=== PATIENT | male | born 1955 | race Hispanic/Latino ===

== ENCOUNTER 2024-11-20 09:30 | Day surgery (SDC) | payer OTHER ==
[2024-11-06 11:58] LABS: Absolute Eosinophils 0.1 K/uL (0-0.5); Absolute Monocytes 0.2 K/uL (0.1-1.3); Absolute Neutrophil 2.9 K/uL (1.8-8.0); Basophils % 1.1 % (0-1.3); Eosinophils % 3.3 % (0-4.4); Hematocrit 31.9 % (39.6-49.0); Hemoglobin 11.3 g/dL (13.6-17.9); Lymphocytes % 23.9 % (15.3-44.8); MCH 33.7 pg (27.0-35.0); MCHC 35.5 g/dL (32.0-36.0); MPV 6.9 fL (7.6-11.3); Monocytes % 5.5 % (3.3-12.3); Neutrophils % 66.2 % (41.7-73.7); Platelets 388 thou/uL (152-406); RBC Red Blood Cell Count 3.36 M/uL (4.33-5.43); Red Cell Distribution Width 20.7 % (12.1-15.2)
[2024-11-06 12:02] LABS: PT Prothrombin Time 10.3 SECONDS (9.4-12.5); PTT, Activated Partial Thromb 32.4 SECONDS (24.3-36.9); Protime INR 0.98
[2024-11-06 12:07] LABS: Anion Gap 7.5 mEq/L (5.0-15.0); Potassium 4.5 mEq/L (3.5-5.1)
--- NOTE | 2024-11-06 12:34 | RAD REPORT ---
EXAMINATION: TWO VIEW CHEST XR CLINICAL INDICATION: Male, 68 years old. [facility] Pre-op pending surgery. Hypertension TECHNIQUE: 2 view radiographs of the chest were performed. COMPARISON: No prior exam. FINDINGS: The lungs are well inflated and clear apart from crescentic subpleural opacities at the apices, may r eflect scarring. No pneumothorax or sizable effusion. The heart is normal in size. Mediastinal contours are unremarkable. Implantable rhythm monitoring device in place. IMPRESSION: No acute or significant abnormalities.
[2024-11-06 13:33] LABS: Anisocytosis 1+; Blood Morphology Comment NOTED (NOT SEEN); Platelet Estimate ADEQ; White Blood Cell Scan OK (OK)
--- NOTE | 2024-11-07 11:31 | EKG ---
Test Date: 2024-11-06 Test Time: 12:31:12 Gallery Intern: CARIE MEASUREMENT RESULTS: Intervals: Rate: 80 NH: 160 QRSD: 88 QT: 380 QTc: 438 [place]: P: 72 NH: 160 QRS: 21 T: 21 INTERPRETIVE STATEMENTS: Normal sinus rhythm Normal ECG No previous ECG available for comparison Electronically Signed On 11-07-24 11:28:15 CRUISE GUIDE by Gigi Jewell
[2024-11-09 12:39] LABS: PSA FREE 0.14 ng/mL; PSA TOTAL 0.9 ng/mL (<=4.0)
[2024-11-20] MEDS ORDERED: TRIAMCINOLONE ACETON 40 MG/ML VIAL ONE (09:40)
[2024-11-20] MEDS ORDERED: propofoL 200 MG/20 ML VIAL IV ONE (09:49)
[2024-11-20] MEDS ORDERED: MIDAZOLAM HCL 2 MG/2 ML INJ ONE (09:49)
[2024-11-20] MEDS ORDERED: FENTANYL CITR 100 MCG/2 ML ONE (09:49)
[2024-11-20] MEDS ORDERED: LIDOCAINE 1% MPF 5 ML VIAL ONE (09:49)
[2024-11-20] MEDS: Ringers Lactate 1,000 ML IV ONE (10:00)
[2024-11-20 10:25] VITALS: O2SAT 100
[2024-11-20] MEDS: CIPROFLOXACIN 400mg IV 400 MG/200 ML BAG IV ONE (10:38)
[2024-11-20] MEDS ORDERED: EPHEDRINE SULF 50 MG/ML VIAL ONE (10:38)
[2024-11-20] MEDS ORDERED: dexAMETHasone 10 MG/ML VIAL ONE (10:43)
[2024-11-20] MEDS ORDERED: ONDANSETRON 4 MG/2 ML VIAL ONE (10:43)
[2024-11-20] MEDS ORDERED: GLYCOPYRROLATE 0.2 MG/ML SYR ONE (10:46)
[2024-11-20] MEDS ORDERED: CODEINE 30MG/APAP 300MG TAB PO PRN (11:54)
[2024-11-20] MEDS ORDERED: PHENAZOPYRIDINE 100MG TAB PO ONE (11:54)
[2024-11-20] MEDS ORDERED: Ringers Lactate 1,000 ML IV ONE (11:58)
[2024-11-20] MEDS: HYDROMORPHONE HCL 1 MG/ML INJ ONE ×2 (12:02→12:14)
--- NOTE | 2024-11-20 12:13 | P.OP ---
Date of Service: 11/20/24 Preoperative diagnosis: Obstructive LUTS Congenital meatal stenosis Postoperative diagnoses: Obstructive LUTS Congenital meatal stenosis Principal procedures: Urethral dilation using sounds Cystoscopy Meatoplasty 22 Syrian urethral Alvarado catheter placement Indication for procedure: 69-year-old gentleman presented to urology clinic with irritative and obstructive LUTS. He underwent cystoscopic evaluation revealing the presence of dense meatal stenosis, and I dilated the stenosis in the clinic on 2 occasions. Despite this, the stenosis recurred with recurrence of the LUTS. Additionally, he initially was found to have significant resistant urinary tract infection because of chronically retained urine. This was eventually resolved after the initial stenosis was dilated. Procedure note: The patient was consented in the preoperative holding area before being transferred to the operative suite where general anesthesia was induced. He was given ciprofloxacin for 100 mg IV antimicrobial prophylaxis, and pneumoboots were provided for DVT prophylaxis. He was placed in the lithotomy position, padded and secured to the table appropriately. His genitalia was prepped with Hibiclens and he was draped in standard fashion. The case has begun examining the meatus and attempting to pass a initially a 22 Syrian cystoscope which would not enter the meatus. Even an 18 Syrian cystoscope sheath would not enter the meatus due to dense stenosis present within the fossa navicularis. As a result, I passed a sensor wire via the stenotic region and alongside the sensor wire, I used urethral sounds to dilate the stenotic meatus from 14 Syrian to 20 Syrian initially. I then surveyed the urethra cystoscopically to assess for the presence of any other urethral stenotic regions, and I navigated through the prostatic urethra which was not significantly obstructive before entering the bladder. The bladder was decompressed of fluid and urine and I assessed the bladder for any papillary mucosal lesion, foreign body or stone. There was some debris within the bladder which I washed out by irrigating the bladder briefly, but no concerning lesions or foreign body seen. As a result, I surveyed the urethra on the way back out and confirm the point of stenosis within the fossa navicularis. As a result, I the meatus before applying a straight snap to the ventral aspect of the meatus in the midline. I clamped an area that was approximately 0.5-3/4 of a centimeter in length before removing the clamp and dividing the intervening tissue with Metzenbaum scissors. I then assessed for any residual stenosis more proximal to that, and identified an area still a bit stenotic a few millimeters more proximal; so I grasped this with the straight snap and divided it as well until the meatus was widely patent. I then utilized 4-0 Monocryl suture to grasp the mucosa divided and folded back over toward the skin of the glans penis placing the sutures in a sextant distribution around the meatal opening. This also ensured hemostasis; so once done, I passed a urethral sound all the way up to 28 Syrian into his urethra with ease. I then again cystoscopically surveyed his urethra for any signs of other residual stenosis, and when none was noted, I passed a 22 Syrian urethral Alvarado catheter into his bladder with ease. 15 cc of sterile water was placed in the balloon and the catheter was connected to a leg bag. He was then taken out of the lithotomy position, awakened from general anesthesia, transferred to a stretcher, and then transferred to the recovery room in good condition. Complications: None Discharge disposition: He will keep the urethral Alvarado catheter for 7 to 10 days during which time he will be covered with 1 Bactrim DS tablet daily. A voiding trial should be established between 8 to 10 days from now. Care of the catheter should be reinforced in Pashto explaining how he should clean around the catheter insertion into the meatus using a 50-50 mixture of dilute hydrogen peroxide and water or alternatively gentle soap and water before applying triple antibiotic ointment, Neosporin/bacitracin, at least twice daily and more often as needed to keep the catheter lubricated so it does not irritate the operation site. Subsequent follow-up after voiding trial should be established in about 3 months time where I will likely perform urethral calibration to confirm its persistent patency. We will also reassess his LUTS at that time. If he has not had a PSA within the last year, we will also recheck his PSA prior to that follow-up appointment.
[2024-11-20 14:29] VITALS: BP 148/81; TEMP 97.5
== END 2024-11-20 13:56 | disposition home or self-care (01) ==
LOC: OR 09:30
PROVIDERS: ATTEND Urology
PROC: 0TND8ZZ Release Urethra, Via Natural or Artificial Opening Endoscopic (ICD-10-PCS; 2024-11-20)
PROC: 0T7D8ZZ Dilation of Urethra, Via Natural or Artificial Opening Endoscopic (ICD-10-PCS; principal; 2024-11-20 10:45)
DX: N35.911 Unspecified urethral stricture, male, meatal (principal); N40.1 Benign prostatic hyperplasia with lower urinary tract symptoms; N13.8 Other obstructive and reflux uropathy
CPT/HCPCS: 52281; 53450; 93005; 87088; 85025; 87086; 80048; 36415; 85610; 85730; 84153; 84154; 71046; J2704; J2003; J3010; J1100; J1171 ×2; J2405; J0744; J7120 ×2; J2250; J3301